=== PATIENT | male | born 2000 | race African-American/Black ===

== ENCOUNTER 2020-01-11 22:17 | Emergency (ER) | payer MEDICAID ==
[~2020-01-11] VITALS: Ht 165.1 cm; Wt 57.0 kg
[2020-01-11 22:29] VITALS: BP 103/65
[2020-01-12] MEDS ORDERED: AZITHROMYCIN 500 MG TABLET PO ONE (00:45)
[2020-01-12] MEDS ORDERED: LIDOCAINE HCL 1% 20ML VIAL (Pyxis) INJ INFIL ONE (00:45)
[2020-01-12] MEDS ORDERED: CEFTRIAXONE SODIUM 250 MG/VIAL IM ONE (00:45)
== END 2020-01-12 02:20 | disposition home or self-care (01) ==
LOC: ER 22:17
DX: J02.9 Acute pharyngitis, unspecified (principal); J06.9 Acute upper respiratory infection, unspecified
CPT/HCPCS: 87070; 87430; 96372; 99283; J0696; J3490

== ENCOUNTER 2023-07-06 09:11 | Emergency (ER) | payer MEDICAID, OTHER ==
[~2023-07-06] VITALS: Ht 167.6 cm; Wt 64.0 kg
[2023-07-06 09:29] VITALS: BP 138/84; PULSE 70; RESP 18; TEMP 98.3; O2SAT 100
[2023-07-06] MEDS ORDERED: DOXY100T2 MT (10:19)
[2023-07-06] MEDS ORDERED: CEFTRIAXONE SODIUM 1 G/VIAL IM ONE (10:30)
[2023-07-06 11:01] LABS: CLARITY URINE TURBID (CLEAR); COLOR URINE YELLOW (YELLOW); GLUCOSE URINE NEGATIVE (NEGATIVE); KETONES URINE TRACE (NEGATIVE); LEUKOCYTE ESTERASE URINE 1+ (NEGATIVE); NITRITE URINE NEGATIVE (NEGATIVE); OCCULT BLOOD URINE NEGATIVE (NEGATIVE); PROTEIN URINE TRACE (NEGATIVE); SPECIFIC GRAVITY URINE 1.018 (1.005-1.030)
[2023-07-06 12:00] LABS: COARSE GRANULAR CASTS URINE 0-5 /lpf
[2023-07-06 12:01] LABS: RBC URINE NONE SEEN /hpf (0-2)
[2023-07-06 12:02] LABS: BACTERIA URINE TRACE; MUCUS URINE 2+ /lpf (NONE/TRACE); SQUAMOUS EPITHELIAL CELL URINE NONE SEEN /lpf (RARE/1+)
[2023-07-06 12:03] LABS: AMORPHOUS SEDIMENT URINE 3+ /lpf
== END 2023-07-06 10:55 | disposition home or self-care (01) ==
LOC: ER 09:11
DX: Z11.3 Encounter for screening for infections with a predominantly sexual mode of transmission (principal)
CPT/HCPCS: 99283; 81003; 96372; J0696